=== PATIENT | female | born 1990 | race Two or more races ===

== ENCOUNTER 2021-08-30 08:58 | Outpatient (CLI) | payer OTHER | END 2021-08-30 09:45 | disposition home or self-care (01) | LOC: PRENATAL 08:58 | PROVIDERS: ATTEND Obstetrics & Gynecology Maternal & Fetal Medicine | DX: O36.80X0 Pregnancy with inconclusive fetal viability, not applicable or unspecified (principal); Z34.00 Encounter for supervision of normal first pregnancy, unspecified trimester ==

== ENCOUNTER 2021-10-17 12:19 | Outpatient (CLI) | payer OTHER | END 2021-10-17 13:50 | disposition home or self-care (01) | LOC: PRENATAL 12:19 | PROVIDERS: ATTEND Obstetrics & Gynecology Maternal & Fetal Medicine | DX: O35.0XX0 Maternal care for (suspected) central nervous system malformation in fetus, not applicable or unspecified (principal); O35.3XX0 Maternal care for (suspected) damage to fetus from viral disease in mother, not applicable or unspecified; O99.891 Other specified diseases and conditions complicating pregnancy; O99.210 Obesity complicating pregnancy, unspecified trimester; Z3A.21 21 weeks gestation of pregnancy ==

== ENCOUNTER 2021-11-29 18:27 | Outpatient (CLI) | payer OTHER ==
[~2021-11-29] VITALS: Ht 149.9 cm; Wt 80.7 kg
[2021-11-29] MEDS ORDERED: PRENATAL TABLE1 EAC3 PO (19:00)
[2021-11-29] MEDS ORDERED: FOLIC ACID0.8 M1 PO (19:01)
== END 2021-11-29 19:31 | disposition home or self-care (01) ==
LOC: OBS/DEL 18:27
PROVIDERS: ATTEND Obstetrics & Gynecology
DX: O26.892 Other specified pregnancy related conditions, second trimester (principal); Z3A.27 27 weeks gestation of pregnancy; K21.9 Gastro-esophageal reflux disease without esophagitis; Z91.018 Allergy to other foods

== ENCOUNTER 2022-02-21 10:59 | Inpatient (IN) | payer OTHER ==
[~2022-02-21] VITALS: Ht 149.9 cm; Wt 82.6 kg
[~2022-02-21 10:59] MED LIST: FOLIC ACID0.8 M1 PO; PRENATAL TABLE1 EAC3 PO
[2022-02-21] MEDS ORDERED: PEPCID AC20 MG PO (14:25)
[2022-02-24] MEDS ORDERED: NAPR500T14 PO (08:53)
== END 2022-02-24 11:35 | disposition home or self-care (01) | DRG 807 ==
LOC: LDR 10:59 → OB/GYN 02-22 04:06
PROVIDERS: ADMIT Student in an Organized Health Care Education/Training Program; ATTEND Student in an Organized Health Care Education/Training Program
PROC: 10E0XZZ Delivery of Products of Conception, External Approach (ICD-10-PCS; principal; 2022-02-22)
PROC: 0KQM0ZZ Repair Perineum Muscle, Open Approach (ICD-10-PCS; 2022-02-22)
PROC: 4A1HXCZ Monitoring of Products of Conception, Cardiac Rate, External Approach (ICD-10-PCS; 2022-02-22)
DX: O70.1 Second degree perineal laceration during delivery (principal); O99.820 Streptococcus B carrier state complicating pregnancy; Z37.0 Single live birth; Z3A.39 39 weeks gestation of pregnancy; Z20.822 Contact with and (suspected) exposure to COVID-19

== ENCOUNTER 2022-03-28 08:45 | Inpatient (IN) | payer OTHER ==
[~2022-03-28] VITALS: Ht 149.9 cm; Wt 74.8 kg
[~2022-03-28 08:45] MED LIST changes: +NAPR500T14 PO; +PEPCID AC20 MG PO
[2022-04-02] MEDS ORDERED: KETO10TA2 PO (18:25)
[2022-04-02] MEDS ORDERED: PROTONIX40 MG PO (18:25)
== END 2022-04-02 23:22 | disposition home or self-care (01) | DRG 419 ==
LOC: ER 08:45 → MEDJ 17:50
PROVIDERS: Surgery; ADMIT Internal Medicine; ATTEND Internal Medicine
PROC: BF37ZZZ Magnetic Resonance Imaging (MRI) of Pancreas (ICD-10-PCS; 2022-03-30)
PROC: BF532Z0 Other Imaging of Gallbladder and Bile Ducts using Fluorescing Agent, Intraoperative (ICD-10-PCS; 2022-04-02)
PROC: 0FT44ZZ Resection of Gallbladder, Percutaneous Endoscopic Approach (ICD-10-PCS; principal; 2022-04-02 15:45)
DX: K80.10 Calculus of gallbladder with chronic cholecystitis without obstruction (principal); R10.11 Right upper quadrant pain; Z20.822 Contact with and (suspected) exposure to COVID-19